=== PATIENT | female | born 1940 | race Caucasian/White ===

== ENCOUNTER 2016-09-23 12:29 | Inpatient (IN) | payer MEDICARE, MEDICAID ==
[~2016-09-23] VITALS: Ht 167.6 cm; Wt 74.8 kg
--- NOTE | 2016-09-23 12:35 | NUR ---
AAOX2, BBPA FROM [facility]: INCREASED AGITATION, GENERALIZED BODY PAIN. RESP IS EVEN AND UNLABORED WITH NAD NOTED. SKIN IS WARM AND DRY. DR REYNAGA AT BS FOR EVAL.
[2016-09-23] MEDS ORDERED: IV NS 0.9% 1,000 ML BAG IV ONE (13:00)
[2016-09-23] MEDS ORDERED: IV NS 0.9% 1,000 ML ONE (13:09)
[2016-09-23] MEDS ORDERED: IV SET PRIMARY 1 EA INFUS.SET MC ONE (13:09)
[2016-09-23 13:34] LABS: CALCIUM, SERUM 8.7 mg/dL (8.5-10.1); CARBON DIOXIDE 26 mmol/L (21-32); CHLORIDE 104 mmol/L (98-107); CREATININE 0.6 mg/dL (0.6-1.3); GLUCOSE 97 mg/dL (74-106); POTASSIUM 3.9 mmol/L (3.5-5.1); SODIUM SERUM 140 mmol/L (136-145); UREA NITROGEN, BLOOD 13 mg/dL (7-18)
[2016-09-23 13:35] LABS: BASOPHILS % (AUTO) 0.1 % (0.0-2.0); EOSINOPHILS # (AUTO) 0.1 /CMM (0.0-0.7); EOSINOPHILS % (AUTO) 2.2 % (0.0-6.0); HEMATOCRIT 41 % (33-45); HEMOGLOBIN 13.6 g/dL (11.5-14.8); LYMPHOCYTES # (AUTO) 3.6 /CMM (0.8-4.8); LYMPHOCYTES % (AUTO) 53.9 % (20.0-44.0); MEAN CORPUSCULAR HEMOGLOBIN 30 PG (26.0-33.0); MEAN CORPUSCULAR HGB CONC 33 g/dl (31.0-36.0); MEAN CORPUSCULAR VOLUME 90 fL (82-100); MONOCYTES # (AUTO) 0.4 /CMM (0.1-1.30); MONOCYTES % (AUTO) 6.7 % (2.0-12.0); NEUTROPHILS # (AUTO) 2.5 /CMM (1.8-8.9); NEUTROPHILS % (AUTO) 37.1 % (43.0-81.0); PLATELET COUNT (AUTO) 174 /CMM (150-450); RDW COEFFICIENT OF VARIATION 13.9 (11.5-15.0); RED BLOOD CELL COUNT(AUTO) 4.57 MIL/uL (4.0-5.2); WHITE BLOOD COUNT (AUTO) 6.7 K/uL (4.3-11.0)
--- NOTE | 2016-09-23 13:35 | NUR ---
XRAY AT BS
[2016-09-23 13:39] LABS: APPEARANCE,URINE Clear (CLEAR); BILIRUBIN,URINE Negative (NEGATIVE); BLOOD, URINE Negative Ery/uL (NEGATIVE); COLOR,URINE Yellow (YELLOW); KETONES,URINE Negative (NEGATIVE); LEUKOCYTE ESTERASE ,URINE Negative (NEGATIVE); NITRITE, URINE Negative (NEGATIVE); PROTEIN,URINE Negative (NEGATIVE); UGLUCOSE Negative (NEGATIVE); UROBILINOGEN,URINE 0.2 EU/dL (0.2)
[2016-09-23 13:39] LABS: ALANINE AMINOTRANSFERASE 39 U/L (12-78); ALBUMIN 3.4 g/dL (3.4-5.0); ALKALINE PHOSPHATASE 47 U/L (46-116); ASPARTATE AMINOTRANSFERASE 28 U/L (15-37); BILIRUBIN,DIRECT 0.1 mg/dL (0.0-0.2); BILIRUBIN,TOTAL 0.3 mg/dL (0.2-1.0)
[2016-09-23 13:41] LABS: TROPONIN I < 0.017 ng/mL (0.00-0.056)
[2016-09-23 13:42] LABS: ACETAMINOPHEN 0 ug/ml (10-30); ALCOHOL, BLOOD < 3 mg/dL (0-0); SALICYLATE 2.7 mg/dL (2.8-20.0)
[2016-09-23] MEDS ORDERED: INSULIN REGULAR, HUMAN 100 UNIT/ML 3 ML VIAL SQ PRN (14:00)
[2016-09-23] MEDS ORDERED: ONDANSETRON HCL/PF 4 MG/2 ML VIAL IVP PRN (14:00)
[2016-09-23] MEDS ORDERED: MAG HYDROX/AL HYDROX/SIMETH 30 ML UDC PO PRN (14:00)
[2016-09-23] MEDS ORDERED: ACETAMINOPHEN 325 MG TABLET PO PRN ×2 (14:00→14:30)
[2016-09-23] MEDS ORDERED: DEXTROSE 50%-WATER 50 ML DISP.SYRIN IV PRN (14:00)
[2016-09-23] MEDS ORDERED: ZOLPIDEM TARTRATE 5 MG TABLET PO PRN (14:00)
[2016-09-23] MEDS ORDERED: MAGNESIUM HYDROXIDE 30 ML UDC PO PRN (14:00)
[2016-09-23] MEDS ORDERED: LOSA25TA13 PO (14:02)
[2016-09-23] MEDS ORDERED: CHOL100040 PO (14:02)
[2016-09-23] MEDS ORDERED: BLOO-668 IN (14:02)
[2016-09-23] MEDS ORDERED: DOCU250C75 PO (14:02)
[2016-09-23] MEDS ORDERED: ASCO500T9 PO (14:02)
[2016-09-23] MEDS ORDERED: ACET-868 PO (14:02)
[2016-09-23] MEDS ORDERED: METF500T4 PO (14:02)
--- NOTE | 2016-09-23 14:08 | NUR ---
PATIENT CAME BACK FROM CT HEAD.
--- NOTE | 2016-09-23 14:50 | NUR ---
REPORT GIVEN TO ELY QUINTERO FOR BRAD MS 103
--- NOTE | 2016-09-23 14:55 | NUR ---
RN INITIAL NOTE RECEIVED REPORT PER [facility] ER DEPT. AWAITING PT TO BE TRANSFERRED.
--- NOTE | 2016-09-23 15:20 | NUR ---
RN INITIAL NOTE RECEIVED PT A/O X 1 CONFUSED SLURRED SPEECH. PT MS. PT ON RA SPO2 97% NO C/O SOB. NO IV ACCESS PT PULLED OUT IV ON TRANSFER FROM ER. SECOND TIME PT PULLED OUT IV. ALL SAFETY MEASURES IN PLACE. BED BATH GIVEN. PHOTOS TAKEN AND PUT IN CHART. SON @ BEDSIDE.
[2016-09-23 15:30] VITALS: BP 157/72
[2016-09-23 16:00] VITALS: BP 20/97
--- NOTE | 2016-09-23 16:00 | NUR ---
RN NOTE SOON CHARGE NURSE ATTEMPTED TO INSERT IV PT CONFUSED AND PULLED OUT ACCESS. PT PULLING ON LINES AND SPO2 LINE. PT CONFUSED UNABLE TO REORIENT. PT IS ERITREAN SPEAKING AND ABLE TO TRANSLATE.
[2016-09-23] MEDS: BLOOD SUGAR DIAGNOSTIC 1 EACH STRIP VI SCH ×2 (17:37→21:18)
[2016-09-23] MEDS: DOCUSATE SODIUM 250 MG CAPSULE PO SCH (17:39)
[2016-09-23] MEDS: ENOXAPARIN SODIUM 40 MG/0.4 ML DISP.SYRIN SQ SCH (17:44)
--- NOTE | 2016-09-23 19:00 | NUR ---
RN CLOSING NOTE REPORT GIVEN TO [facility] NURSE FOR BRAD. A/O X 1 CONFUSED SLURRED SPEECH. BILATERAL RESTRAINTS CK FOR PT SAFETY. PT MS. PT ON RA SPO2 97% .NO C/O SOB. IV R HAND #22 G FLUSHED PATENT AND INTACT. ALL SAFETY MEASURES IN PLACE. ALL MEDICATIONS GIVEN ALL ORDERS CARRIED OUT. DAUGHTER @ BEDSIDE.
[2016-09-23 20:00] VITALS: BP 195/88
[2016-09-23] MEDS: HYDROCODONE/APAP 5/325MG 1 EACH TABLET PO PRN (20:13)
[2016-09-23] MEDS: IV NS 0.9% 1,000 ML IV PRN (20:14)
--- NOTE | 2016-09-23 20:26 | NUR ---
RN:MS: PT RECEIVED IN BED NEW ADMISSION FOR FAILURE TO THRIVE. PATIENT IS VERY CONFUSED AND RESTLESS IN BED. PER PREVIOUS SHIFT PATIENT REMOVED 3 IV LINES AND REQUIRES BILATERAL SOFT WRIST RESTRAINTS. PT CONTINUES TO BE EXTREMELY RESTLESS AND DOES NOT COMPREHEND PLAN OF CARE. PT MEDICATED FOR PAIN PER MD ORDERS. IV FLUIDS STARTED PER MD ORDERS. VSS. WILL CONTINUE TO MONITOR CLOSELY. BP ELEVATED WILL RECHECK SHORTLY AFTER PAIN MEDICATION BEGINS TO WORK. ASPIRATION AND FALL PRECAUTIONS IN PLACE.
[2016-09-23 21:09] VITALS: BP 165/82
[2016-09-23] MEDS: *INSULIN REGULAR(HUMULIN R)HUM 100 UNIT/ML VIAL SQ PRN (21:20)
--- NOTE | 2016-09-24 02:37 | NUR ---
RN:MS: ENDORSED CARE TO CHINTAN. PT RESTING COMFORTABLY. ALL ORDERS CARRIED OUT. IV SITE INTACT. VSS.
--- NOTE | 2016-09-24 02:46 | NUR ---
MS RN NOTE ASSUMED CARE FOR THE PT. PT IS AWAKE. ALERT, CONFUSED, [place] SPEAKING. NO DISTRESS OR DISCOMFORT NOTED. DENIES PAIN. IVF NS @ 75 ML/HR INFUSING WELL, NO S/S OF INFILTRATION NOTED. BILATERAL SOFT WRIST RESTRAINT ON. REPOSITION HER FOR SKIN MANAGEMENT. SIDE RAILS UP X 2 AND CALL LIGHT WITHIN REACH. CONTINUE TO MONITOR HER.
[2016-09-24 04:00] VITALS: BP 147/69
[2016-09-24] MEDS: BLOOD SUGAR DIAGNOSTIC 1 EACH STRIP VI SCH ×4 (05:36→21:21)
[2016-09-24 06:24] LABS: EOSINOPHILS # (AUTO) 0.1 /CMM (0.0-0.7); EOSINOPHILS % (AUTO) 2.8 % (0.0-6.0); HEMATOCRIT 38 % (33-45); HEMOGLOBIN 12.8 g/dL (11.5-14.8); LYMPHOCYTES # (AUTO) 3.1 /CMM (0.8-4.8); LYMPHOCYTES % (AUTO) 62.7 % (20.0-44.0); MEAN CORPUSCULAR HEMOGLOBIN 30 PG (26.0-33.0); MEAN CORPUSCULAR HGB CONC 34 g/dl (31.0-36.0); MEAN CORPUSCULAR VOLUME 90 fL (82-100); MONOCYTES # (AUTO) 0.4 /CMM (0.1-1.30); MONOCYTES % (AUTO) 7.4 % (2.0-12.0); NEUTROPHILS # (AUTO) 1.4 /CMM (1.8-8.9); NEUTROPHILS % (AUTO) 27.1 % (43.0-81.0); PLATELET COUNT (AUTO) 165 /CMM (150-450); RED BLOOD CELL COUNT(AUTO) 4.27 MIL/uL (4.0-5.2)
--- NOTE | 2016-09-24 06:26 | NUR ---
MS RN NOTE PT IN BED ASLEEP, AROUSABLE. NO DISTRESS OR DISCOMFORT NOTED. NO S/S OF ANY PAIN. IVF INFUSING WELL. NO S/S OF INFILTRATION NOTED. KEPT HER DRY AND CLEAN. REPOSITION HER Q2H. PT REMAIN WITH SOFT WRIST RESTRAINTS. SIDE RAILS UP X 2 AND CALL LIGHT WITHIN REACH. WILL ENDORSE TO DAY SHIFT NURSE FOR CONTINUE TO CARE.
[2016-09-24 06:53] LABS: ALBUMIN 3.1 g/dL (3.4-5.0); CALCIUM, SERUM 8.1 mg/dL (8.5-10.1); CARBON DIOXIDE 25 mmol/L (21-32); CHLORIDE 108 mmol/L (98-107); CREATININE 0.6 mg/dL (0.6-1.3); GLUCOSE 89 mg/dL (74-106); MAGNESIUM 1.9 mg/dL (1.8-2.4); PHOSPHORUS 3.9 mg/dL (2.5-4.9); SODIUM SERUM 141 mmol/L (136-145); UREA NITROGEN, BLOOD 13 mg/dL (7-18)
[2016-09-24 08:00] VITALS: BP 145/99
--- NOTE | 2016-09-24 08:00 | NUR ---
MS1/RN AM SHIFT INITIAL NOTES RECEIVED PT AWAKE IN BED. PT A/O X 1, CONFUSED. SUDANESE SPEAKING. NO ACUTE CHANGE OF CONDITION NOTED. ON ROOM AIR SATURATING WELL, LUNG SOUNDS CLEAR. DENIES ANY DISCOMFORT. WITH ON GOING IV INFUSION OF NS @ 75CC/HR, IV SITE PATENT WITH NO S/S OF INFECTION. BILATERAL SOFT WRIST RESTRAINTS, RELEASED TO CHECK FOR CIRCULATION AND COMFORT THEN PLACED BACK. SCHEDULED AM MEDS TO BE GIVEN. PT IS COMFORTABLE. CL WITHIN REACHED AND SAFETY MAINTAINED. ON GOING MONITORING.
[2016-09-24] MEDS: DOCUSATE SODIUM 250 MG CAPSULE PO SCH ×2 (08:48→16:16)
[2016-09-24] MEDS: ASCORBIC ACID 500 MG TABLET PO SCH (08:49)
[2016-09-24] MEDS: LOSARTAN POTASSIUM 25 MG TABLET PO SCH (08:49)
[2016-09-24] MEDS: PANTOPRAZOLE 40 MG TABLET.DR PO SCH (08:49)
--- NOTE | 2016-09-24 09:00 | NUR ---
MS1/RN ROUNDS - DR. LOPEZ PT SEEN & EXAMINED PT. WITH NEW ORDERS RECEIVED TO OBTAIN CONSENT FOR COLONOSCOPY, EGD AND TO START BOWEL PREP. ORDERS NOTED AND TO BE CARRIED OUT. CONSENT FOR SAID PROCEDURES, OBTAINED THROUGH (TELEPHONE CONSENT) PT'S DAUGHTER. ON GOING MONITORING.
[2016-09-24] MEDS ORDERED: PEG 3350/NA SULF,BICARB,CL/KCL 4,000 ML BOTTLE PO ONE ×2 (09:30)
--- NOTE | 2016-09-24 10:00 | NUR ---
MS1/STRAIGHTENER AND ALIGNER CONSULT PT BEING SEEN AND EXAMINED BY WOUND NURSE. NO NEW ORDERS RECEIVED AT THIS TIME. MONITORING CONTINUED.
[2016-09-24] MEDS: IV NS 0.9% 1,000 ML IV PRN (10:09)
--- NOTE | 2016-09-24 10:11 | NUR ---
WOUND CARE CONSULT: PT PRESENTS WITH SACRAL ULCER WITH LARGE AREA OF SCARRING. RECOMMENDATIONS MADE FOR WOUND CARE AND SKIN PROTECTION. DISCUSSED WITH NURSING STAFF. PT ON SERGIO ISOFLEX LOW AIRLOSS BED. PT NOTED TO HAVE SEVERE LOWER EXTREMITY CONTRACTURES. PT TO BE TURNED AND REPOSITIONED EVERY 2 HRS PT CONDITION PERMITS, HEELS FLOATED. RAQUEL SCORE IS 14. ALL SKIN PROTECTION MEASURES IN PLACE. MD IN AGREEMENT WITH PLAN OF CARE. Addendum: 09/24/16 at 1013 by ALPHONSE LUIS WNDNU Amended: Links added.
[2016-09-24] MEDS ORDERED: HYDROGEL DRESSING 90 GM TUBE TP PRN (10:30)
--- NOTE | 2016-09-24 10:30 | NUR ---
MS1/RN ROUNDS - DR. ADAMS PT SEEN AND EXAMINED BY DR. ADAMS. NO NEW ORDERS RECEIVED AT THIS TIME. MONITORING CONTINUED.
--- NOTE | 2016-09-24 10:43 | NUR ---
MS1/RN STATUS CODE - VERIFIED NOTICED THAT ON PT'S CHART POLST INDICATED PT STATUS IS DNR. CALLED PT'S DAUGHTER TO VERIFY THE CODE BECAUSE PT WAS ADMITTED FULL CODE. PT'S DAUGHTER WANT STATUS CODE TO BE DNR/DNI. I FULLY EXPLAINED WHAT THE STATUS MEANT AND THE PT'S DAUGHTER VERBALIZED UNDERSTANDING. THE CODE WAS VERIFIED WITH ANOTHER NURSE. WILL NOTIFY DR. MEHTA OF THE CHANGE IN STATUS CODE.
[2016-09-24] MEDS: HYDROGEL DRESSING 90 GM TUBE TP SCH (11:29)
[2016-09-24] MEDS: *INSULIN REGULAR(HUMULIN R)HUM 100 UNIT/ML VIAL SQ PRN (12:40)
[2016-09-24 16:00] VITALS: BP 93/50
[2016-09-24 18:49] VITALS: BP 93/50
--- NOTE | 2016-09-24 19:10 | NUR ---
MS1/RN AM SHIFT END NOTES ALL NEEDS MET. NO ACUTE CHANGE OF CONDITION NOTED DURING THE SHIFT. PT ENDORSED TO PM NURSE TO CONTINUE CARE. CL WITHIN REACHED AND SAFETY MAINTAINED.
--- NOTE | 2016-09-24 19:20 | NUR ---
RN NOTES RECEIVED PT AWAKE ON BED. AOX1 AZERI SPEAKING, RESPONSIVE TO TACTILE AND VERBAL STIMULI. IV SITE ON LFA G 22 RUNNING WITH 75 CC/HR INTACT AND PATENT . BILATERAL SOFT WRIST RESTRAINT CHECKED WITH GOOD CIRCULATION. SKIN CARE PROVIDED. AFEBRILE. BREATH SOUNDS CLEAR. PLAN OF CARE EXPLAINED IN REGARDS TO PREPARATION FOR COLONOSCOPY AND EGD. GOLYTELY CONTINUE TO GIVE. PT IS COMPLAINT AT THIS TIME. KEPT PT CLEAN AND DRY SKIN CARE PROVIDED. WILL MONITOR FREQ.
[2016-09-24 20:00] VITALS: BP_SYST 116; BP_SYST 161; BP_DIAS 87
[2016-09-24] MEDS: ENOXAPARIN SODIUM 40 MG/0.4 ML DISP.SYRIN SQ SCH (21:00)
[2016-09-24] MEDS: HYDROCODONE/APAP 5/325MG 1 EACH TABLET PO PRN (21:20)
--- NOTE | 2016-09-25 01:00 | NUR ---
MS RN NOTES RECEIVED TRANSFER FROM MS 1 BY BED.A/O X1,SPEAK ARABIC,BILATERAL LOWER EXTREMITIES CONTRACTED.SALINE LOCK X2,INFILTRATED.NEW SALINE LOCK PLACE ON LEFT WRIST X20.NS AT 75ML/HR RATE RE STARTED.
[2016-09-25] MEDS: IV NS 0.9% 1,000 ML IV PRN (01:03)
--- NOTE | 2016-09-25 01:07 | NUR ---
RN NOTES TRANSFERRED PT TO [facility] 2ND FLOOR REPORT GIVEN TO LEONARDO AWARE ABOUT THE PROCEDURE OF COLONOSCOPY AND EGD IN AM. INFORMED THAT PT MADE AN XL LOOSE BOWEL STILL WITH SOME PARTICLES. PT IS IN STABLE CONDITION WHEN TRANSFER. ENDORSED CONTINUITY OF CARE TO RECEIVING NURSE.
[2016-09-25 02:54] VITALS: BP 161/76
[2016-09-25] MEDS: BLOOD SUGAR DIAGNOSTIC 1 EACH STRIP VI SCH ×4 (05:57→23:01)
--- NOTE | 2016-09-25 07:41 | NUR ---
MS RN NOTES HAD BM X3,ABLE TO FINISHED [employer].GOING FOR EGD/COLONOSCOPY TODAY UNDER DR GARCIA.ENDORSED TO DAY NURSE FOR BRAD.
--- NOTE | 2016-09-25 07:45 | NUR ---
MS RN NOTES PATIENT TAKEN TO OR FOR COLONOSCOPY. STABLE
[2016-09-25 08:00] VITALS: BP 115/82
--- NOTE | 2016-09-25 09:29 | NUR ---
MS RN NOTES PER DR SNOWDEN PATIENT IS TO HAVE 2 FLEET ENEMAS AND ANOTHER GOLYTELY TODAY. SURGERY RN FAXED TO PHARMACY FOR GOLYTELY TODAY
[2016-09-25] MEDS ORDERED: NA PHOS,M-B/NA PHOS,DI-BA 1 EA ENEMA RC PRN (09:30)
[2016-09-25] MEDS: DOCUSATE SODIUM 250 MG CAPSULE PO SCH ×2 (09:33→16:46)
[2016-09-25] MEDS: ASCORBIC ACID 500 MG TABLET PO SCH (09:33)
[2016-09-25] MEDS: LOSARTAN POTASSIUM 25 MG TABLET PO SCH (09:34)
[2016-09-25] MEDS: HYDROGEL DRESSING 90 GM TUBE TP SCH (09:34)
[2016-09-25] MEDS: PANTOPRAZOLE 40 MG TABLET.DR PO SCH (09:34)
--- NOTE | 2016-09-25 09:54 | NUR ---
MS RN NOTES MESSAGE TO DR LOPEZ IN REGARDS TO CLARIFICATION OF FLEET ENEMA TIMING AND WHEN TO START GO LYTELY
--- NOTE | 2016-09-25 11:34 | NUR ---
MS RN NOTES SPOKE WITH DAUGHTER THERON AND UPDATED ON NEEDING REPEAT COLONOSCOPY. PER DAUGHTER OK TO ATTEMPT AGAIN AND A NEW PHONE CONSENT OBTAINED WITH ANMOL [facility]ES CONFIRMING CONSENT
[2016-09-25] MEDS ORDERED: PEG 3350/NA SULF,BICARB,CL/KCL 4,000 ML BOTTLE PO ONE (12:00)
[2016-09-25] MEDS ORDERED: NA PHOS,M-B/NA PHOS,DI-BA 1 EA ENEMA RC ONE ×2 (13:00→22:00)
--- NOTE | 2016-09-25 13:29 | NUR ---
MS RN NOTES PATIENT SON AT BEDSIDE AND UPDATED ON PATIENT CARE PLAN
--- NOTE | 2016-09-25 15:54 | NUR ---
MS RN NOTES FREQUENT SKIN CLEANSING FOR PATIENT DUE TO DIARRHEA FOR COLONOSCOPY. SKIN IS SENSITIVE LIBERALLY APPLYING Z GUARD FOR PATIENT. STOOL STARTING TO BECOME WATERY
[2016-09-25] MEDS: Z GUARD REMEDY 2 OZ OINT TP PRN ×2 (15:58→17:08)
--- NOTE | 2016-09-25 15:58 | NUR ---
MS RN NOTES CALLED PHARMACY TO HAVE MORE Z GUARD FOR PATIENT
[2016-09-25 16:00] VITALS: BP 165/83
[2016-09-25 16:30] VITALS: BP 148/80
--- NOTE | 2016-09-25 17:25 | NUR ---
MS RN NOTES PATIENT PULLED OUT IV DURING TRIAL OF RELEASING RESTRAINTS. I TURNED AROUND TO GRAB A TOWEL FOR PATIENT AND SHE HAD PULLED OUT IV. PRESSURE AND DRESSING APPLIED NO BLEEDING NOTED.
--- NOTE | 2016-09-25 18:21 | NUR ---
MS RN CLOSING PATIENT STABLE NO COMPLICATIONS. TOLERATING GOLYTELY WELL. ABOUT 1000ML LEFT. CONTINUING TO ASSIST PATIENT WITH DRINKING. Z GUARD APPLIED AND SKIN CARE COMPLETED AGAIN FOR PATIENT. UNABLE TO INSERT IV HARD STICK WILL ENDORSE TO RN FOR BRAD. PATIENT SOFT RESTRAINTS ON AND BED ALARM ON. CALL LIGHT IN REACH, TV ON AND RAILS UPX3 FOR SAFETY. WILL ENDORSE CARE TO RN FOR BRAD
--- NOTE | 2016-09-25 19:30 | NUR ---
RN NOTES RECEIVED PT. AWAKE ON BED, A/OX2, RESTRAINT IS OFF , NO IV ACCESS, PT TOOK IT OUT, SIDERAILS UPX2 CONTINUE TO MONITOR
[2016-09-25 20:00] VITALS: BP_SYST 169; BP_SYST 170; BP_DIAS 78; BP_DIAS 84
[2016-09-25] MEDS: ENOXAPARIN SODIUM 40 MG/0.4 ML DISP.SYRIN SQ SCH (21:00)
[2016-09-25] MEDS ORDERED: hydrALAZINE HCL 10 MG TABLET PO PRN (23:00)
--- NOTE | 2016-09-25 23:00 | NUR ---
RN NOTES SPOKE TO DR. GLASER REGARDING PT. BLOOD PRESSURE OF 170/84. DR. GLASER ORDERED HYDRALAZINE 10MG PO PRN ORDER NOTED AND CARRIED OUT
[2016-09-25] MEDS ORDERED: hydrALAZINE HCL 10 MG TABLET ONE (23:09)
--- NOTE | 2016-09-25 23:17 | NUR ---
RN NOTES BLOOD PRESSURE OF 170/84 HYDRALAZINE 10 MG PO GIVEN ORDERED
--- NOTE | 2016-09-26 | NUR ---
RN NOTES CALLED ICU CHARGE NURSE TO PUT AN IV ACCESS TO THE PT.
[2016-09-26] MEDS: IV NS 0.9% 1,000 ML IV PRN (00:52)
[2016-09-26] MEDS ORDERED: NA PHOS,M-B/NA PHOS,DI-BA 1 EA ENEMA RC ONE ×2 (06:50→07:00)
--- NOTE | 2016-09-26 06:59 | NUR ---
RN NOTES SPOKE TO DR. LOPEZ AND INFORMED HIM REGARDING PT THAT IS GOING TO COLONOSCOPY IS NOT CLEAR YET THERE STILL SOME HARD STOOL COMING OUT. DR. LOPEZ ORDERED FLEET ENEMA X1 ORDER NOTED AND CARRIED OUT
[2016-09-26 07:03] LABS: BASOPHILS % (AUTO) 0.3 % (0.0-2.0); EOSINOPHILS # (AUTO) 0.1 /CMM (0.0-0.7); EOSINOPHILS % (AUTO) 2.4 % (0.0-6.0); HEMATOCRIT 41 % (33-45); HEMOGLOBIN 13.5 g/dL (11.5-14.8); LYMPHOCYTES # (AUTO) 2.4 /CMM (0.8-4.8); MEAN CORPUSCULAR HEMOGLOBIN 30 PG (26.0-33.0); MEAN CORPUSCULAR HGB CONC 33 g/dl (31.0-36.0); MEAN CORPUSCULAR VOLUME 90 fL (82-100); MONOCYTES # (AUTO) 0.3 /CMM (0.1-1.30); MONOCYTES % (AUTO) 6.7 % (2.0-12.0); NEUTROPHILS # (AUTO) 1.8 /CMM (1.8-8.9); NEUTROPHILS % (AUTO) 38.6 % (43.0-81.0); PLATELET COUNT (AUTO) 158 /CMM (150-450); RDW COEFFICIENT OF VARIATION 14.2 (11.5-15.0); RED BLOOD CELL COUNT(AUTO) 4.53 MIL/uL (4.0-5.2); WHITE BLOOD COUNT (AUTO) 4.6 K/uL (4.3-11.0)
--- NOTE | 2016-09-26 07:03 | NUR ---
RN NOTES MORNING CARE RENDERED, PT NEEDS ATTENDED
[2016-09-26 07:12] LABS: PROTHROMBIN TIME 10.7 SECS (9.5-12.7)
[2016-09-26 07:17] LABS: CALCIUM, SERUM 8.3 mg/dL (8.5-10.1); CARBON DIOXIDE 27 mmol/L (21-32); CHLORIDE 107 mmol/L (98-107); CREATININE 0.5 mg/dL (0.6-1.3); GLUCOSE 100 mg/dL (74-106); POTASSIUM 3.8 mmol/L (3.5-5.1); SODIUM SERUM 142 mmol/L (136-145); UREA NITROGEN, BLOOD 3 mg/dL (7-18)
[2016-09-26] MEDS: PANTOPRAZOLE 40 MG TABLET.DR PO SCH (07:30)
[2016-09-26] MEDS: BLOOD SUGAR DIAGNOSTIC 1 EACH STRIP VI SCH ×2 (07:30→12:29)
--- NOTE | 2016-09-26 07:30 | NUR ---
MS/RN Patient received Patient received from shift production supervisor. No needs at this time, NPO for colonoscopy.
--- NOTE | 2016-09-26 07:50 | NUR ---
MS/RN GI Patient off floor at this time for colonoscopy, chart with patient.
[2016-09-26 09:00] VITALS: BP 172/76
[2016-09-26] MEDS: DOCUSATE SODIUM 250 MG CAPSULE PO SCH (09:00)
[2016-09-26] MEDS: ASCORBIC ACID 500 MG TABLET PO SCH (09:00)
[2016-09-26] MEDS: LOSARTAN POTASSIUM 25 MG TABLET PO SCH (09:00)
--- NOTE | 2016-09-26 09:30 | NUR ---
MS/RN Back from GI Patient back in room from colonoscopy, which showed internal hemorrhoids. Post procedure vital signs as per protocol.
--- NOTE | 2016-09-26 11:30 | NUR ---
MS/RN S/B Dr Balderrama Seen by Dr Balderrama - patient to be discharged back to facility later today if tolerates liquid diet.
--- NOTE | 2016-09-26 12:00 | NUR ---
MS/RN Blood sugar Blood sugar 108, no coverage required.
--- NOTE | 2016-09-26 12:42 | NUR ---
MS/RN Exit care Exit care completed, chart copied ready for discharge.
--- NOTE | 2016-09-26 15:06 | NUR ---
MS/RN Report Report called to Sergio (charge nurse) at [facility].
--- NOTE | 2016-09-26 15:31 | NUR ---
MS/gas main fitter Patient discharged to SNF in stable condition. All belongings with patient. Heplock and name bands removed, report called to facility.
== END 2016-09-26 15:30 | DRG 640 ==
LOC: ER 12:32 → MEDSG1 14:43 → MEDSG2 09-25 00:56
PROVIDERS: ADMIT Internal Medicine; ATTEND Internal Medicine
PROC: 0DB68ZX Excision of Stomach, Via Natural or Artificial Opening Endoscopic, Diagnostic (ICD-10-PCS; principal; 2016-09-25 09:15)
PROC: 0DB48ZX Excision of Esophagogastric Junction, Via Natural or Artificial Opening Endoscopic, Diagnostic (ICD-10-PCS; 2016-09-25 09:15)
PROC: 0DJD8ZZ Inspection of Lower Intestinal Tract, Via Natural or Artificial Opening Endoscopic (ICD-10-PCS; 2016-09-26)
DX: E86.0 Dehydration (principal); G92 Toxic encephalopathy; I69.351 Hemiplegia and hemiparesis following cerebral infarction affecting right dominant side; D68.59 Other primary thrombophilia; E44.1 Mild protein-calorie malnutrition; E11.9 Type 2 diabetes mellitus without complications; Z98.2 Presence of cerebrospinal fluid drainage device; Z66 Do not resuscitate; G89.29 Other chronic pain; F31.9 Bipolar disorder, unspecified; F03.90 Unspecified dementia, unspecified severity, without behavioral disturbance, psychotic disturbance, mood disturbance, and anxiety; E88.09 Other disorders of plasma-protein metabolism, not elsewhere classified; K64.8 Other hemorrhoids; K29.70 Gastritis, unspecified, without bleeding; L89.150 Pressure ulcer of sacral region, unstageable; R62.7 Adult failure to thrive; I10 Essential (primary) hypertension; M81.0 Age-related osteoporosis without current pathological fracture
CPT/HCPCS: 36415; 70450-TC; 71010-TC; 80048-TC; 80076-TC; 80305; 81000-TC; 82040-TC; 82962-TC; 83735-TC; 84100-TC; 84443-TC; 84484-TC; 85025-TC; 85610-TC; 85730-TC; 87081-TC; 88305-TC; 88313-TC; 88342; 93307-TC; A4606; A6248; G0480; J1650; J1815; J2704; J3490; J7030; Z7610